=== PATIENT | male | born 1980 | race African-American/Black ===

== ENCOUNTER 2018-12-14 18:33 | Inpatient (IN) | payer OTHER ==
[~2018-12-14] VITALS: Ht 170.2 cm; Wt 136.0 kg
[2018-12-14 19:43] LABS: Basophils # (auto) 0.1 uL; Basophils % (auto) 0.6 % (0.0-2.0); Eosinophils # (auto) 0.2 uL; Eosinophils % (auto) 2.3 % (0.0-7.0); Hematocrit 30.2 % (41.0-53.0); Hemoglobin 10.3 g/dL (13.5-17.5); Lymphocytes # (auto) 1.9 uL; Lymphocytes % (auto) 21.1 % (10.0-50.0); Mean Corpuscular Hemoglobin 30.8 pg (28.0-32.0); Mean Corpuscular Hgb Conc. 34.2 g/dL (32.0-36.0); Mean Corpuscular Volume 90.2 fL (80.0-100.0); Monocytes # (auto) 0.6 uL; Monocytes % (auto) 7.1 % (0.0-12.0); Neutrophils # (auto) 6.3 uL; Neutrophils % (auto) 68.9 % (37.0-80.0); Platelet Count (auto) 186 10^3/uL (140-450); Red Blood Cells 3.35 10^6/uL (4.5-5.90); Red Cell Distribution Width 13.2 % (11.8-14.3); White Blood Cell 9.1 10^3/uL (4.4-10.8)
[2018-12-14 19:58] LABS: Albumin 2.8 g/dL (3.4-5.0); Anion Gap 2 (5-15); Blood Urea Nitrogen 78 mg/dL (7-18); Carbon Dioxide 24 mmol/L (21-32); Chloride 113 mmol/L (98-107); Glucose 115 mg/dL (74-106); Potassium 5.3 mmol/L (3.5-5.1); Sodium 139 mmol/L (136-145)
[2018-12-14 20:03] LABS: Alanine Aminotransferase 23 U/L (16-61); Alkaline Phosphatase 62 U/L (45-117); Aspartate Aminotransferase 11 U/L (15-37); BUN/Creatinine Ratio 39.4; Bilirubin, Total 0.2 mg/dL (0.2-1.0); GFR African American 49 mL/min; GFR Non-African American 40 mL/min; Total Protein 5.6 g/dL (6.4-8.2)
[2018-12-14] MEDS ORDERED: SODIUM CHLORIDE 0.9% 1,000 ML IV ONE (23:00)
[2018-12-14] MEDS ORDERED: CALCIUM GLUC 4.65meq/50ml D5AE 50 ML IV ONE (23:45)
[2018-12-14] MEDS ORDERED: DEXTROSE (50%) 50ML SYRG IV ONE (23:45)
[2018-12-14] MEDS ORDERED: InsuLIN REG 1unit/0.01ml Soln (100units/ml) IV ONE (23:45)
[2018-12-14] MEDS ORDERED: SODIUM BICARBONATE 8.4 % INJ 50ML VIAL IV ONE (23:45)
[2018-12-14 23:48] LABS: Urine WBC None Seen /hpf (0 - 3)
[2018-12-14 23:57] LABS: Urine Bacteria NONE SEEN /hpf (None Seen); Urine Blood Negative /uL (Negative)
[2018-12-15] VITALS (8 sets, daily range): BP systolic 95–112; BP diastolic 51–60
[2018-12-15] MEDS ORDERED: SODIUM BICARBONATE 8.4 % INJ 50ML VIAL IV ONE (00:30)
[2018-12-15] MEDS ORDERED: NITROGLYCERIN 0.4 MG SL TAB SL PRN (01:00)
[2018-12-15] MEDS ORDERED: SODIUM ZIRCONIUM CYCL 10 GM PAK PO ONE (01:00)
[2018-12-15] MEDS ORDERED: ONDANSETRON HCL 4 MG/2 ML VIAL IV PRN (01:00)
[2018-12-15] MEDS ORDERED: MORPHINE SULF INJ 2 MG/ML SYRINGE 1ML IV PRN (01:00)
[2018-12-15] MEDS ORDERED: ACETAMINOPHEN 325 MG TAB PO PRN (01:00)
--- NOTE | 2018-12-15 02:42 | NUR ---
Telemetry admit from ER [facility] admitted to Telemetry unit after hand off tool received. Patient oriented to primary RN, unit, room, bed, and unit policies regarding patient care and visiting hours. Patient now on continuous telemetry monitoring, tele box #1 and telemetry reading on arrival to unit is SR 88. Patient with O2 sat at 96%, no sob noted or reported. Pt weighed by bedscale and encouraged to call if they need something. All questions and concerns addressed, patient verbalized understanding. 2 guards at bedside. Will continue to monitor.
[2018-12-15] MEDS ORDERED: FOLI1TAB6 PO (03:00)
[2018-12-15] MEDS ORDERED: LATA0.0015 EACHEYE (03:00)
[2018-12-15] MEDS ORDERED: OMEP20TA PO (03:00)
[2018-12-15] MEDS ORDERED: LISI40TA PO (03:00)
[2018-12-15] MEDS ORDERED: AMLO5TAB15 PO (03:00)
[2018-12-15] MEDS ORDERED: ATOR40TA52 PO (03:00)
--- NOTE | 2018-12-15 03:00 | NUR ---
Patient requested for food, patient on a clear liquid diet, provided pt with Adama and juice. All needs attended, will continue to monitor.
--- NOTE | 2018-12-15 03:14 | NUR ---
Chlorine Cell Tender at bedside, unable to get blood draw x 2 attempts. Per senior research manager, will send another senior research manager to do blood draw.
[2018-12-15] MEDS: PANTOPRAZOLE 40 MG TAB PO SCH (06:06)
--- NOTE | 2018-12-15 07:00 | NUR ---
Opening Shift Note Assumed care of patient, awake and alert. No S/S of distress/SOB or pain. Instructed on POC and to call for assist PRN, will continue to monitor for changes Q1hr and PRN.
[2018-12-15 07:41] LABS: % Iron Saturation 26.8 % (20-55)
[2018-12-15 08:19] LABS: Hematocrit 26.9 % (41.0-53.0); Hemoglobin 8.7 g/dL (13.5-17.5)
[2018-12-15 08:38] LABS: BUN/Creatinine Ratio 42.1
--- NOTE | 2018-12-15 09:00 | NUR ---
REPORT GIVEN TO RADIO PERFORMER FROM [facility] TO GIVE UPDATES ON THE PATIENT'S PLAN FOR THE DAY.
--- NOTE | 2018-12-15 18:47 | NUR ---
EVENING REPORT GIVEN TO [facility] EXPLORATION MANAGER. GAVE AN UPDATE ON WHAT HAS OCCURRED WITH THE PATIENT'S PLAN OF CARE TODAY.
[2018-12-16 05:00] VITALS: BP 94/54
[2018-12-16] MEDS: PANTOPRAZOLE 40 MG TAB PO SCH (06:00)
[2018-12-16 07:19] LABS: Basophils # (auto) 0 uL; Basophils % (auto) 0.4 % (0.0-2.0); Eosinophils # (auto) 0.2 uL; Eosinophils % (auto) 2.8 % (0.0-7.0); Hematocrit 25.6 % (41.0-53.0); Hemoglobin 8.7 g/dL (13.5-17.5); Lymphocytes # (auto) 2.2 uL; Lymphocytes % (auto) 31.9 % (10.0-50.0); Mean Corpuscular Hemoglobin 30.6 pg (28.0-32.0); Mean Corpuscular Hgb Conc. 34.1 g/dL (32.0-36.0); Mean Corpuscular Volume 89.6 fL (80.0-100.0); Monocytes # (auto) 0.5 uL; Monocytes % (auto) 7.9 % (0.0-12.0); Neutrophils # (auto) 3.9 uL; Nucleated Red Blood Cells % 0.1 %; Platelet Count (auto) 170 10^3/uL (140-450); Red Blood Cells 2.85 10^6/uL (4.5-5.90); Red Cell Distribution Width 13.2 % (11.8-14.3); White Blood Cell 6.8 10^3/uL (4.4-10.8)
[2018-12-16 07:33] LABS: Calcium 8.3 mg/dL (8.5-10.1); Potassium 4.9 mmol/L (3.5-5.1)
[2018-12-16 07:36] LABS: BUN/Creatinine Ratio 27.6
[2018-12-16 08:00] VITALS: BP 94/54
[2018-12-16 09:00] VITALS: BP 128/61
[2018-12-16 13:00] VITALS: BP 109/62
--- NOTE | 2018-12-16 14:44 | NUR ---
spoke with [facility] i gave them an update to the patient's plan of care.
[2018-12-16 17:00] VITALS: BP 102/70
[2018-12-16] MEDS: ENSURE CLEAR Mixed Berry 8oz Carton PO SCH (18:00)
[2018-12-16] MEDS ORDERED: Ensure HIGH Protein Chocolate 8oz Bottle PO SCH (18:00)
--- NOTE | 2018-12-16 19:29 | NUR ---
OPENING NOTES RECEIVED REPORT FROM DAY SHIFT NURSE, PT IS AWAKE, ALERT AND ORIENTATED X 4 WITH NO S/S OF DISTRESS NOR SOB. NO S/S OF PAIN. GUARDS ARE AT BEDSIDE. BED IS IN LOWEST POSITION AND SIDE RAILS UP X2. BED BRAKES ARE LOCKED AND CALL LIGHT IS WITH IN REACH. HOB IS 30 DEGREES. WILL MONITOR PATIENT Q 1HR.
[2018-12-16 22:00] VITALS: BP 116/67
[2018-12-16] MEDS: FAMOTIDINE (10MG/ML) 2ML VL IV SCH (22:30)
--- NOTE | 2018-12-16 23:19 | NUR ---
IV insertion IV access obtained, via clean sterile technique by inserting 20 gauge catheter at left shoulder after 2 attempts. IV secured properly. No trauma to site. Patient tolerated well.
[2018-12-16] MEDS: TEMAZEPAM 15 MG CAP PO PRN (23:32)
[2018-12-17] VITALS (7 sets, daily range): BP systolic 95–141; BP diastolic 52–75
[2018-12-17] MEDS: PANTOPRAZOLE 40 MG TAB PO SCH ×2 (06:08→22:34)
--- NOTE | 2018-12-17 07:02 | NUR ---
CLOSING NOTES ENDORSED CARE TO DAY SHIFT NURSEAMANDA
[2018-12-17] MEDS ORDERED: ADENOSINE 114 MG in GIVE UN-DILUTED 0 ML IV STA (07:55)
[2018-12-17] MEDS: ENSURE CLEAR Mixed Berry 8oz Carton PO SCH ×3 (08:00→18:00)
[2018-12-17] MEDS ORDERED: LIDOCAINE VISCOUS 2% 15ML UD ONE (08:48)
[2018-12-17] MEDS ORDERED: diphenhdrAMINE HCL 50 MG/1 ML VL ONE (08:49)
[2018-12-17] MEDS: FAMOTIDINE (10MG/ML) 2ML VL IV SCH (09:51)
[2018-12-17 10:05] LABS: Basophils # (auto) 0 uL; Basophils % (auto) 0.3 % (0.0-2.0); Eosinophils # (auto) 0.2 uL; Eosinophils % (auto) 3.3 % (0.0-7.0); Hemoglobin 8.8 g/dL (13.5-17.5); Lymphocytes # (auto) 1.7 uL; Lymphocytes % (auto) 28.4 % (10.0-50.0); Mean Corpuscular Hemoglobin 30.9 pg (28.0-32.0); Mean Corpuscular Hgb Conc. 33.7 g/dL (32.0-36.0); Mean Corpuscular Volume 91.6 fL (80.0-100.0); Monocytes # (auto) 0.6 uL; Monocytes % (auto) 9.7 % (0.0-12.0); Neutrophils # (auto) 3.5 uL; Neutrophils % (auto) 58.3 % (37.0-80.0); Nucleated Red Blood Cells % 0.1 %; Platelet Count (auto) 196 10^3/uL (140-450); Red Blood Cells 2.84 10^6/uL (4.5-5.90); Red Cell Distribution Width 13.3 % (11.8-14.3); White Blood Cell 6.1 10^3/uL (4.4-10.8)
--- NOTE | 2018-12-17 10:10 | NUR ---
Called in report to leeryo Barth
[2018-12-17 10:18] LABS: INR 0.94 (0.9-1.15)
[2018-12-17 10:28] LABS: Albumin 2.6 g/dL (3.4-5.0); Anion Gap 3 (5-15); BUN/Creatinine Ratio 14.6; Blood Urea Nitrogen 27 mg/dL (7-18); Calcium 8.1 mg/dL (8.5-10.1); Carbon Dioxide 25 mmol/L (21-32); Chloride 115 mmol/L (98-107); GFR African American 53 mL/min; GFR Non-African American 44 mL/min; Glucose 89 mg/dL (74-106); Potassium 4.9 mmol/L (3.5-5.1); Sodium 143 mmol/L (136-145)
[2018-12-17 10:33] LABS: Alanine Aminotransferase 29 U/L (16-61); Alkaline Phosphatase 65 U/L (45-117); Aspartate Aminotransferase 13 U/L (15-37); Bilirubin, Total 0.2 mg/dL (0.2-1.0); Total Protein 5.2 g/dL (6.4-8.2)
--- NOTE | 2018-12-17 12:20 | NUR ---
IV removal IV to the right uppr arm DC'd with clean sterile technique, catheter fully intact. Pressure dressing applied to site. Patient tolerated well.
--- NOTE | 2018-12-17 12:42 | NUR ---
PT TRANSFERRED TO [facility] NO DISTRESS NOTED AT TIME OF DEPARTURE
[2018-12-17] MEDS: fentaNYL CITRATE 100 MCG/2 ML VL ONE ×2 (13:08→13:12)
[2018-12-17] MEDS: MIDAZOLAM HCL 5 MG/ML-1ML VIAL ONE ×2 (13:08→13:12)
--- NOTE | 2018-12-17 14:00 | NUR ---
PT RETURNED TO UNIT FROM PROCEDURE. RECIEVED REPORT FROM GIOVANI VARELA. NO DISTRESS NOTED AT THIS TIME. WILL CONTINUE TO MONITOR
--- NOTE | 2018-12-17 14:25 | NUR ---
PT OFF UNIT FOR PROCEDURE
--- NOTE | 2018-12-17 15:32 | NUR ---
PT RETURNED TO UNIT FROM PROCEDURE. NO DISTRESS NOTED AT THIS TIME.
--- NOTE | 2018-12-17 16:40 | NUR ---
MD TESSIE ANDREWS AT BEDSIDE FOR CONSULTATION. NEW ORDERS RECEIVED
--- NOTE | 2018-12-17 17:03 | NUR ---
PAGED REGARDING STOOL OCCULT RESULTS
--- NOTE | 2018-12-17 17:04 | NUR ---
RETURNED PAGE REGARDING STOOL OCCULT RESULTS. INFORMED MD QUIGLEY OF EGD RESULTS WELL. NO NEW ORDERS AT THIS TIME.
[2018-12-17] MEDS: SODIUM CHLORIDE 0.9% 1,000 ML IV SCH (17:48)
[2018-12-17 21:58] LABS: Protein, Urine 69.3 mg/dL (0.0-11.9)
[2018-12-18] MEDS: SODIUM CHLORIDE 0.9% 1,000 ML IV SCH (01:37)
[2018-12-18] MEDS: TEMAZEPAM 15 MG CAP PO PRN (01:39)
--- NOTE | 2018-12-18 02:15 | NUR ---
PATIENT TELE BOX MONITOR WAS REPORTING A RHYTHM OF V-FIB/VTAC WITHOUT THE ACTUAL RHYTHM TO MATCH. I WENT INTO PATIENT ROOM TO CHECK ON PATIENT. HE RESPONDED TO ME PROMPTLY AND REPORTED FEELING NO PALPITATIONS OR NO FUNNY FEELINGS. A FEW MINUTES LATER THIS WAS REPORTED AGAIN ON THE MONITOR WITH THE SAME REPORT OF V-FIB/VTAC AND AGAIN WITHOUT THE RHYTHM TO MATCH THE REPORTED RHYTHM. I THEN DID A 12 LEAD EKG AND THE REPORT CAME BACK WITH A SINUS RHYTHM. PATIENT IS RESTING WITH NO COMPLAINTS OF CHEST PAIN.
[2018-12-18 04:57] VITALS: BP 122/58
[2018-12-18 06:17] LABS: Basophils # (auto) 0 uL; Basophils % (auto) 0.1 % (0.0-2.0); Eosinophils # (auto) 0.2 uL; Hematocrit 25.8 % (41.0-53.0); Hemoglobin 8.6 g/dL (13.5-17.5); Lymphocytes # (auto) 2.1 uL; Lymphocytes % (auto) 29.2 % (10.0-50.0); Mean Corpuscular Hemoglobin 30.4 pg (28.0-32.0); Mean Corpuscular Hgb Conc. 33.5 g/dL (32.0-36.0); Mean Corpuscular Volume 90.9 fL (80.0-100.0); Monocytes # (auto) 0.7 uL; Monocytes % (auto) 9.8 % (0.0-12.0); Neutrophils # (auto) 4.1 uL; Neutrophils % (auto) 57.9 % (37.0-80.0); Nucleated Red Blood Cells % 0.3 %; Platelet Count (auto) 193 10^3/uL (140-450); Red Blood Cells 2.84 10^6/uL (4.5-5.90); Red Cell Distribution Width 13.6 % (11.8-14.3); White Blood Cell 7.1 10^3/uL (4.4-10.8)
[2018-12-18 06:36] LABS: Potassium 4.5 mmol/L (3.5-5.1)
[2018-12-18 06:46] LABS: BUN/Creatinine Ratio 11.8; Calcium 7.7 mg/dL (8.5-10.1)
[2018-12-18 08:07] VITALS: BP 112/52
[2018-12-18 08:52] VITALS: BP 148/77
--- NOTE | 2018-12-18 09:08 | NUR ---
MD TESSIE QUIGLEY AT BEDSIDE. NEW ORDERS RECEIVED. WILL IMPLEMENT.
[2018-12-18] MEDS: PANTOPRAZOLE 40 MG TAB PO SCH (09:51)
[2018-12-18] MEDS: ENSURE CLEAR Mixed Berry 8oz Carton PO SCH (09:51)
[2018-12-18 10:16] VITALS: BP 148/77
[2018-12-18 10:24] VITALS: BP 148/77
--- NOTE | 2018-12-18 10:24 | NUR ---
Called in report to leeroy ADKINS
--- NOTE | 2018-12-18 10:57 | NUR ---
DISCHARGE Spoke to Nita at [facility] she stated ph # for RN report is [phone] ext [phone].
--- NOTE | 2018-12-18 11:00 | NUR ---
Discharge instructions given as ordered. All questions and concerns addressed. Patient verbalized understanding. Medication reconciliation form completed and copy given to patient. IV removed with catheter intact, pressure dressing applied. Telemetry unit returned to ICU. Patient taken to vehicle via wheelchair with all personal belongings, accompanied by [employer] guards. No distress noted at time of departure.
[2018-12-18 12:52] VITALS: BP 128/73
== END 2018-12-18 13:40 | DRG 377 ==
LOC: ER 18:39 → EEVIPCON 18:39 → TELE 18:40 → TELE-EAST 12-15 02:41
PROVIDERS: ADMIT Nurse Practitioner; ATTEND Internal Medicine
PROC: 0DB68ZX Excision of Stomach, Via Natural or Artificial Opening Endoscopic, Diagnostic (ICD-10-PCS; principal; 2018-12-17 13:05)
DX: K29.01 Acute gastritis with bleeding (principal); N17.0 Acute kidney failure with tubular necrosis; E44.0 Moderate protein-calorie malnutrition; Z68.42 Body mass index [BMI] 45.0-49.9, adult; E66.01 Morbid (severe) obesity due to excess calories; D50.9 Iron deficiency anemia, unspecified; E78.5 Hyperlipidemia, unspecified; E87.5 Hyperkalemia; I12.9 Hypertensive chronic kidney disease with stage 1 through stage 4 chronic kidney disease, or unspecified chronic kidney disease; K44.9 Diaphragmatic hernia without obstruction or gangrene; G89.29 Other chronic pain; R55 Syncope and collapse; K76.0 Fatty (change of) liver, not elsewhere classified; N20.0 Calculus of kidney; N28.1 Cyst of kidney, acquired; K57.30 Diverticulosis of large intestine without perforation or abscess without bleeding; N18.3 Chronic kidney disease, stage 3 (moderate); Z83.3 Family history of diabetes mellitus; Z87.891 Personal history of nicotine dependence; Z88.8 Allergy status to other drugs, medicaments and biological substances
CPT/HCPCS: 36415; 43239; 70450; 71045; 74176; 76775; 78452; 80048; 80053; 81001; 82270; 82570; 82962; 83036; 83540; 83550; 83880; 84156; 84443; 84484; 85014; 85018; 85025; 85610; 86850; 86900; 86901; 93005; 93017; 93306; 93886; 96361; 96365; 96375; G0378; J0153; J0610; J1815; J2250; J3490